=== PATIENT | female | born 1940 | race Caucasian/White ===

== ENCOUNTER 2020-09-29 19:45 | Inpatient (IN) | payer MEDICARE, MEDICAID, SELFPAY ==
[~2020-09-29] VITALS: Ht 160 cm; Wt 64.9 kg
[2020-09-29 19:48] VITALS: BP 233/121
--- NOTE | 2020-09-29 19:48 | NUR ---
PT TAKEN TO BED 8 VIA GURNEY.
--- NOTE | 2020-09-29 19:49 | NUR ---
RT AT BEDSIDE.
--- NOTE | 2020-09-29 19:50 | NUR ---
SUCTIONED OF COPIUS AMOUNTS THICK WHITE SPUTUM
--- NOTE | 2020-09-29 19:53 | NUR ---
PATIENT WAS BROUGHT TO ED BY EMT. PT IS BEING BAGGED ON ARRIVAL. PT WAS CONNECTED TO HOME VENT SETTINGS: AC/VC RR 16, VT 400, PEEP 6. PT WAS PEAK PRESSURING IN 60s WITH LESS THAN 150 EXHALE VOLUMES. SUCTIONED COPIOUS AMOUNT OF CREAMY/ YELLOW THICK SECRETIONS FROM ETT. STILL HIGH PEAK PRESSURES AND LOW VOLUMES. SWITCHED MODE TO PRESSURE CONTROL AND TITRATED INSPIRATORY PRESSURE TO 24 TO GET VOLUMES GREATER THAN 300, RR 16, PEEP 6, FiO2 100. VENT PLUGGED IN RED OUTLET, ALARMS SET AND AUDIBLE. WILL CONTINUE TO MONITOR PT.
--- NOTE | 2020-09-29 19:55 | NUR ---
PATIENT PRESENTS TO ED WITH C/O SOB . PT ATTACHED TO VENT VIA TRACH. SKIN IS PINK/WARM/MOIST; HR EVEN AND REGULAR; PATIENT POSITIONED FOR COMFORT; HOB ELEVATED; BEDRAILS UP X2; BED DOWN. ER MD MADE AWARE OF PT STATUS.
[2020-09-29] MEDS ORDERED: ALBUTEROL SULFATE/IPRATROPIU 3 ML SOL IH ONE (20:10)
--- NOTE | 2020-09-29 20:14 | NUR ---
EKG PERFORMED AT BEDSIDE. EKG READS SINUS TACHYCARDIA @ 112
[2020-09-29 20:40] LABS: BASOPHILS % (AUTO) 0.2 % (0.0-2.0); EOSINOPHILS # (AUTO) 0.1 K/uL (0-0.4); EOSINOPHILS % (AUTO) 0.4 % (0.0-4.0); HEMATOCRIT 34.7 % (36-48); HEMOGLOBIN 11.6 g/dL (12.0-16.0); LYMPHOCYTES # (AUTO) 3.9 K/uL (2.5-16.5); LYMPHOCYTES % (AUTO) 20.8 % (20.5-51.1); MEAN CORPUSCULAR HEMOGLOBIN 33 pg (27-31); MEAN CORPUSCULAR HGB CONC 33 g/dL (33-37); MEAN CORPUSCULAR VOLUME 99.7 fL (80-94); MONOCYTES % (AUTO) 5.1 % (1.7-9.3); NEUTROPHILS # (AUTO) 13.9 K/uL (1.8-7.7); NEUTROPHILS % (AUTO) 73.5 % (42.2-75.2); PLATELET COUNT (AUTO) 507 K/uL (140-450); RED BLOOD CELL COUNT(AUTO) 3.48 MIL/uL (4.20-5.40); RED CELL DISTRIBUTION WIDTH 13.5 % (11.6-13.7); WHITE BLOOD COUNT (AUTO) 18.9 K/uL (4.8-10.8)
[2020-09-29 20:48] LABS: C-REACTIVE PROTEIN QUANT 3.4 mg/dL (0.0-0.9)
[2020-09-29 20:54] LABS: LACTATE DEHYDROGENASE 194 U/L (81-234); PROTHROMBIN TIME 10.9 secs (10.8-13.4)
[2020-09-29 21:02] LABS: ALBUMIN 2.7 g/dL (3.4-5.0); ANION GAP 9.5 (8-16); ASPARTATE AMINOTRANSFERASE 19 U/L (15-37); CARBON DIOXIDE 29.3 mmol/L (21-32); CHLORIDE 91 mmol/L (98-107); CREATININE 0.6 mg/dL (0.6-1.3); POTASSIUM 4.8 mmol/L (3.5-5.1); SODIUM SERUM 125 mmol/L (136-145); TOTAL BILIRUBIN 0.2 mg/dL (0.0-1.0); UREA NITROGEN, BLOOD 18 mg/dL (7-18)
[2020-09-29 21:05] LABS: GLUCOSE 415 mg/dL (74-106)
--- NOTE | 2020-09-29 21:15 | NUR ---
ABG RESULTS WERE REPORTED TO DR. NOLEN. CHANGES MADE ON VENT SETTINGS. INCREASED RR FROM 16 TO 24. PT TOLERATING WELL. WILL CONTINUE TO MONITOR.
[2020-09-29] MEDS ORDERED: NACL 0.9% 1,000 ML IV ONE (21:25)
--- NOTE | 2020-09-29 21:25 | NUR ---
XARY AT BEDSIDE.
--- NOTE | 2020-09-29 22:00 | NUR ---
O2 SAT 82-84%. SUCTIONED OF LARGE AMOUNTS TENACIOUS SPUTUM O2 SAT INCREASED TO 94%
[2020-09-29] MEDS ORDERED: PIPERACILLIN/TAZOBACTAM 3.375 GM in DEXTROSE 5% 50 ML IV ONE (22:05)
[2020-09-29] MEDS ORDERED: VANCOMYCIN 1,000 MG in DEXTROSE 5% 250 ML IV ONE (22:05)
[2020-09-29] MEDS ORDERED: NICARDIPINE HYDROCHLORIDE 25 MG in NACL 0.9% 240 ML IV ONE (22:45)
--- NOTE | 2020-09-29 22:50 | NUR ---
ABG RESULTS WERE REPORTED TO DR. NOLEN. NO CHANGES MADE ON VENT SETTINGS. WILL CONTINUE TO MONITOR.
[2020-09-29 23:10] VITALS: BP 196/108
--- NOTE | 2020-09-29 23:39 | NUR ---
X-RAY AT BEDSIDE
[2020-09-29] MEDS ORDERED: VANCOMYCIN 1,000 MG VIAL ONE (23:48)
[2020-09-30 00:02] LABS: RSV NEGATIVE (NEGATIVE)
[2020-09-30] MEDS ORDERED: HYDR-3233 PO (01:15)
[2020-09-30] MEDS ORDERED: LEVO0.114 PO (01:15)
[2020-09-30] MEDS ORDERED: MELA5TAB6 PO (01:15)
[2020-09-30] MEDS ORDERED: MONT10TA35 PO (01:15)
[2020-09-30] MEDS ORDERED: SENN-74 PO (01:15)
[2020-09-30] MEDS ORDERED: WITC1MED22 TP (01:15)
[2020-09-30] MEDS ORDERED: DOCU-299 PO (01:15)
[2020-09-30] MEDS ORDERED: GABA-636 PO (01:15)
[2020-09-30] MEDS ORDERED: ASPI-1884 PO (01:15)
[2020-09-30] MEDS ORDERED: METOPROLOL 25 MG TAB PO SCH (01:26)
[2020-09-30] MEDS ORDERED: METOPROLOL 5 MG/5 ML VIAL IV SCH (01:26)
[2020-09-30] MEDS ORDERED: NACL 0.9% 500 ML IV SCH (01:30)
[2020-09-30] MEDS ORDERED: PIPERACILLIN/TAZOBACTAM 3.375 GM VIAL IV ONE (01:36)
[2020-09-30] MEDS ORDERED: METOPROLOL 5 MG/5 ML VIAL ONE (01:53)
[2020-09-30] MEDS ORDERED: METOPROLOL 25 MG TAB ONE (01:53)
[2020-09-30] MEDS ORDERED: METOPROLOL 25 MG TAB PEG STA (01:58)
[2020-09-30] MEDS ORDERED: METOPROLOL 5 MG/5 ML VIAL IV STA (01:58)
--- NOTE | 2020-09-30 02:00 | NUR ---
RESTING IN BED APPEARS MORE ALERT. BP HAS IMPROVED. CM REMAINS ST WITHOUT ECTOPY. SUCTIONED MODERATE AMOUNT THICK SPUTUM. LUNGS REMAINS NOISY WITH COARSE CRACKLES THROUGHOUT.
--- NOTE | 2020-09-30 02:30 | NUR ---
REPORT CALLED TO SELENA ELLER
[2020-09-30 03:42] VITALS: BP 157/85
--- NOTE | 2020-09-30 04:05 | NUR ---
Pt transferred to Tele via GURNEY ATTACHED TO VENT AND ACCOUNTING SUPERVISOR. RT AT BEDSIDE
--- NOTE | 2020-09-30 04:30 | NUR ---
PT WAS SUCCESSFULLY TRANSPORTED FROM ER TO THE FLOOR. VENT WAS PLUGGED IN RED OUTLET. ALARMS SET AND AUDIBLE. PT IS IN NO RESPIRATORY DISTRESS AT THIS TIME. TRACH CARE COMPLETED. AIRWAY IS PATENT. RN AT BEDSIDE. WILL CONTINUE TO MONITOR PT.
--- NOTE | 2020-09-30 04:31 | NUR ---
[place]MITTED 80 F[place] [facility] [place]SFERRED SAFELY FR. SNOW TO BED, ON TRACH TO VENT, NO DISTRESS, RT AT BEDSIDE, PT IS NON VERBAL, OPENS EYES UPON SHAKING. NO SOB, FLACC 0. V/S TAKEN, O2 SAT AT 99% ON VENT. MRSA SWAB TAKEN, CLEANED PT, KELSIE CARE RENDERED, KEPT WARM AND COMFORTABLE, FALL PROTOCOL IN PLACE, DROPLET ISO OBSERVED, CALL LIGHT WITHIN REACH. WILL MONITOR.
--- NOTE | 2020-09-30 06:06 | NUR ---
DR. NOLEN CHECKED THE PT AND DID MANUAL REDUCTION TO PT'S LEFT SHOULDER AND PUT A SLING.
--- NOTE | 2020-09-30 06:30 | NUR ---
SPOKE TO MARY RN, SHE SAID TO F/U LATER ABOUT THE PT VACCINATION STATUS. SHE ALSO SAID THAT FAMILY CONSENTED TO GIVE VACCINE BUT SHE CANNOT FIND RECORD IF IT WAS GIVEN ALREADY OR NOT YET.
[2020-09-30] MEDS: DEXT 5% / NACL 0.9% 500 ML IV SCH ×2 (07:30→15:12)
--- NOTE | 2020-09-30 07:30 | NUR ---
RECEIVED REPORT FROM NIGHT NURSE FOR CONTINUITY OF CARE, PT IS STABLE, TRACH TO VENT, PT'S MACHINE ALARMING PER NIGHT NURSE SHE CALLED RT. PT HAS RIGHT HAND 20G SALINE LOCK, PT HAS LEFT SHOULDER SLING, SAFETY MEASURES IN PLACE, WILL CONTINUE TO MONITOR. PT'S DAUGHTER CALLED AND UPDATED HER ON CURRENT PLAN AND WILL CALL HER BACK WITH MORE INFORMATION, ONCE DR HAS ASSESS PT. RONEL [phone]
--- NOTE | 2020-09-30 07:32 | NUR ---
INFORMED DR. AZUL THAT PT HAS NO DIET. NO GT. NO IVF. ORDERED D5NS AT 65 CC/HR, NPO AND FULL CODE. NOTED AND CARRIED OUT.
--- NOTE | 2020-09-30 07:33 | NUR ---
PT IS STABLE, ENDORSED PT TO AM SHIFT RN FOR CONTINUITY OF CARE. Addendum: 09/30/20 at 0759 by Alison Landa RN ALSO ENDORSED TO F/U IN CEC THE VACCINATION STATUS OF PATIENT.
[2020-09-30 08:00] VITALS: BP 132/80
--- NOTE | 2020-09-30 08:30 | NUR ---
PATIENT HAS BEEN SCREENED AND CATEGORIZED HIGH NUTRITION RISK. PATIENT WILL BE SEEN WITHIN 1-2 DAYS OF ADMISSION. 09/30/2020 - 10/01/2020 ALICIA HUBER MBA, RD
[2020-09-30] MEDS ORDERED: guaiFENesin DM 200/20 MG-10 ML 10 ML UDC PO PRN (08:50)
[2020-09-30] MEDS ORDERED: hydrALAZINE 10 MG TAB PO SCH (08:50)
[2020-09-30] MEDS ORDERED: ONDANSETRON 4 MG/2 ML VIAL IM/IVP PRN (08:50)
[2020-09-30] MEDS: PIPERACILLIN/TAZOBACTAM 3.375 GM in DEXTROSE 5% 50 ML IV SCH ×6 (08:50→23:03)
[2020-09-30] MEDS ORDERED: ACETAMINOPHEN 325 MG TAB PO PRN (08:50)
[2020-09-30] MEDS ORDERED: HYDROcodone/APAP 7.5/325 MG 1 TAB PO PRN (08:50)
[2020-09-30] MEDS ORDERED: ZOLPIDEM 5 MG TAB PO PRN (08:50)
[2020-09-30] MEDS ORDERED: DOCUSATE SODIUM 100 MG GELCAP PO PRN (08:50)
[2020-09-30] MEDS: LEVOTHYROXINE 0.112 MG TAB PO SCH (09:00)
[2020-09-30] MEDS: ASPIRIN 81 MG TAB.CHEW PO SCH (09:00)
[2020-09-30] MEDS: GABAPENTIN 100 MG CAP PO SCH ×2 (09:00→20:51)
[2020-09-30] MEDS: PANTOPRAZOLE 40 MG INJ VIAL IVP SCH (10:05)
--- NOTE | 2020-09-30 10:53 | NUR ---
NOTIFIED DR AZUL PT DOES NOT HAVE IV ACCESS, PT MAY NEED PICC LINE, UNABLE TO GIVE IV MEDICATION.
--- NOTE | 2020-09-30 10:55 | NUR ---
RECEIVED TORB FOR PICC LINE ORDER FOR PT, OBTAIN PICC LINE CONSENT. WILL INPUT ORDER AND CARRY IT OUT.
--- NOTE | 2020-09-30 11:04 | NUR ---
OBTAINED CONSENT FOR [facility] TO HAVE [facility], WILL CALL PICC LINE NURSE.
--- NOTE | 2020-09-30 11:13 | NUR ---
UPDATED PT'S DAUGHTER RONEL REGARDING PT'S STATUS, SHE VERBALIZED UNDERSTANDING AND APPRECIATION.
[2020-09-30] MEDS ORDERED: DEXTROSE 50% 50 ML SYR IVP PRN (11:25)
[2020-09-30] MEDS: BLOOD GLUCOSE MONITORING 1 DEV DEV FS SCH ×3 (11:30→21:38)
[2020-09-30 12:00] VITALS: BP 146/98
[2020-09-30 12:03] LABS: CHOL/HDL RATIO 2.9 (1-4.5); FREE T4 (FREE THYROXINE) 1.58 ng/dL (0.76-1.46); MAGNESIUM 1.8 mg/dL (1.8-2.4); PHOSPHORUS 3.3 mg/dL (2.5-4.9); THYROID STIMULATING HORMONE 1.01 uIU/mL (0.34-3.74)
--- NOTE | 2020-09-30 14:39 | NUR ---
CALLED DR AZUL AND INFORMED HIM PER PICC LINE NURSE, BOTH OF PT'S ARM ARE PARALYSIS AND DOES DR AZUL WANTS THE PT TO GO AHEAD AND GET THE MIDLINE. NOTIFIED DR AZUL AND DR AZUL SAID "GO AHEAD AND PUT A MIDLINE". WILL NOTIFIED PICC LINE NURSE.
--- NOTE | 2020-09-30 15:01 | NUR ---
PT HAS RIGHT UA MIDLINE, PER PICC LINE NURSE, IT IS OKAY TO USE MIDLINE. WILL START ZOSYN AND SKIP 1800 ZOSYN PER PHARMACIST. ADMINISTERED SCHEDULED MEDICATION, MEDICATION EDUCATION PROVIDED, PT IS LITHUANIAN SPEAKING AND TRACHED TO VENT, PT IS STABLE, WILL CONTINUE TO MONITOR.
[2020-09-30 15:19] LABS: APPEARANCE,URINE CLEAR (CLEAR); BILIRUBIN,URINE NEGATIVE (NEGATIVE); BLOOD, URINE 2+ (NEGATIVE); COLOR,URINE YELLOW (YELLOW); LEUKOCYTE ESTERASE ,URINE NEGATIVE (NEGATIVE); NITRITE, URINE POSITIVE (NEGATIVE); UGLUCOSE 3+ (NEGATIVE)
[2020-09-30 15:30] VITALS: BP 65/39
[2020-09-30 15:41] LABS: RBC,URINE 11-20 (MOD) /HPF (0-5); WBC,URINE 0-5 /HPF (0-5)
[2020-09-30 15:42] LABS: TRICHOMONAS,URINE None Seen /HPF (None Seen); YEAST,URINE None Seen /HPF (None Seen)
--- NOTE | 2020-09-30 15:46 | NUR ---
PER PHARMACY DR AZUL NEEDS TO ADD FREQUENCY TO HYDRALAZINE PRN ORDER, PER DR AZUL GIVE HYDRALAZINE BID. WILL NOTIFY PHARMACY.
[2020-09-30 16:00] VITALS: BP 91/62
--- NOTE | 2020-09-30 16:38 | NUR ---
CALLED PT DAUGHTER RONEL AT [phone] AND UNABLE TO LEAVE A VOICEMAIL, LEFT A MSM PAGE WITH CALL BACK NUMBER [phone] NOTIFIED RT FOR VALVE FOR PT TO BE ABLE TO SPEAK.
--- NOTE | 2020-09-30 18:30 | NUR ---
NOTIFIED DR AZUL BP IS LOW, RECEIVED TORB FROM DR AZUL TO INCREASE D5NS TO 80ML/H AND PT CAN START DIET ON MECHANICAL SOFT, START SLOW AND MONITOR FOR CHOKING.
--- NOTE | 2020-09-30 19:30 | NUR ---
ENDORSE PT TO NIGHT NURSE FOR CONTINUITY OF CARE, PT IS STABLE.
--- NOTE | 2020-09-30 19:45 | NUR ---
RECEIVED ENDORSEMENT FROM DAY SHIFT RN, PT IS STABLE, TRACH TO VENT ACPC FIO2 40% RATE 24 PEEP 6, PT ON A PUREED DIET. SR/ST ON MONITOR, PT HAS GERRY MIDLINE RUNNING D5 NS 80 MLS/HR, PT HAS LEFT SHOULDER SLING, SHOWING NO SIGNS OF ACUTE DISTRESS, SAFETY MEASURES IN PLACE, WILL CONTINUE TO MONITOR.
--- NOTE | 2020-09-30 19:56 | NUR ---
RECEIVED PT FROM DAY SHIFT ON SETTING PC 24, R 24, PEEP 6, FIO2 40%. PT TRACH WITH PORTEX 7. VENTILATOR PLUGGED TO THE RED OUTLET, BVM @ BEDSIDE, ALARMS ARE SET AUDIBLE. PT IS IN NO RESPIRATORY DISTRESS. WILL CONTINUE TO MONITOR.
[2020-09-30 20:00] VITALS: BP 108/55
[2020-09-30] MEDS: MONTELUKAST SODIUM 10 MG TAB PO SCH (20:52)
[2020-09-30] MEDS: INSULIN LISPRO SLIDING SCALE 100 UNITS/ML VIAL SUBQ PRN (21:20)
--- NOTE | 2020-09-30 21:45 | NUR ---
ADMINISTERED 2100H MEDICATIONS PER ORDERED, ORAL CARE AND SUCTIONING PERFORMED. PT SHOWING NO SIGNS OF ACUTE DISTRESS, SAFETY MEASURES IN PLACE, WILL CONTINUE TO MONITOR
--- NOTE | 2020-09-30 22:10 | NUR ---
PT'S DAUGHTER RONEL CALLED VIA [phone] AND UPDATED HER ON THE PTS CONDITION
[2020-10-01] VITALS: BP 112/56
--- NOTE | 2020-10-01 00:05 | NUR ---
ORAL CARE AND SUCTIONING PERFORMED, PT SHOWING NO SIGNS OF ACUTE DISTRESS, SAFETY MEASURES IN PLACE, WILL CONTINUE TO MONITOR
--- NOTE | 2020-10-01 00:25 | NUR ---
PT'S DAUGHTER RONEL CALLED VIA [phone] AND UPDATED HER ON THE PTS CONDITION
--- NOTE | 2020-10-01 01:15 | NUR ---
REPOSITIONED PT, ORAL CARE AND SUCTIONING PERFORMED, PT SHOWING NO SIGNS OF ACUTE DISTRESS, SAFETY MEASURES IN PLACE
[2020-10-01 04:00] VITALS: BP 106/61
[2020-10-01] MEDS: PIPERACILLIN/TAZOBACTAM 3.375 GM in DEXTROSE 5% 50 ML IV SCH ×3 (05:09→17:05)
--- NOTE | 2020-10-01 05:30 | NUR ---
[place] NEW BAG OF ZOSYN 3.375 GM
[2020-10-01] MEDS: DEXT 5% / NACL 0.9% 500 ML IV SCH ×5 (06:03→23:46)
[2020-10-01 06:13] LABS: BASOPHILS % (AUTO) 0.2 % (0.0-2.0); HEMATOCRIT 26.6 % (36-48); HEMOGLOBIN 9.2 g/dL (12.0-16.0); LYMPHOCYTES # (AUTO) 1.3 K/uL (2.5-16.5); LYMPHOCYTES % (AUTO) 11.6 % (20.5-51.1); MEAN CORPUSCULAR HEMOGLOBIN 33 pg (27-31); MEAN CORPUSCULAR HGB CONC 35 g/dL (33-37); MEAN CORPUSCULAR VOLUME 96.7 fL (80-94); MONOCYTES # (AUTO) 0.6 K/uL (0.8-1.0); MONOCYTES % (AUTO) 5.5 % (1.7-9.3); NEUTROPHILS # (AUTO) 9.5 K/uL (1.8-7.7); NEUTROPHILS % (AUTO) 82.7 % (42.2-75.2); PLATELET COUNT (AUTO) 326 K/uL (140-450); RED BLOOD CELL COUNT(AUTO) 2.75 MIL/uL (4.20-5.40); RED CELL DISTRIBUTION WIDTH 13.8 % (11.6-13.7); WHITE BLOOD COUNT (AUTO) 11.5 K/uL (4.8-10.8)
[2020-10-01] MEDS: INSULIN LISPRO SLIDING SCALE 100 UNITS/ML VIAL SUBQ PRN ×3 (06:36→17:10)
[2020-10-01] MEDS: BLOOD GLUCOSE MONITORING 1 DEV DEV FS SCH ×4 (06:36→20:23)
--- NOTE | 2020-10-01 06:38 | NUR ---
REPOSITIONED PT, ORAL CARE AND SUCTIONING PERFORMED, AM CARE GIVEN, PT BLOOD GLUCOSE 198, ADMINISTERED 2 UNITS OF HUMALOG PER PROTOCOL, PT SHOWING NO SIGNS OF ACUTE DISTRESS, SAFETY MEASURES IN PLACE
[2020-10-01 06:58] LABS: ANION GAP 12.3 (8-16); CARBON DIOXIDE 25.9 mmol/L (21-32); CHLORIDE 97 mmol/L (98-107); CREATININE 0.8 mg/dL (0.6-1.3); GLUCOSE 206 mg/dL (74-106); POTASSIUM 3.2 mmol/L (3.5-5.1); SODIUM SERUM 132 mmol/L (136-145); UREA NITROGEN, BLOOD 19 mg/dL (7-18)
--- NOTE | 2020-10-01 07:30 | NUR ---
RECEIVED ENDORSEMENT FROM BOTTLE PACKER RN, PT IS STABLE, TRACH TO VENT ACPC FIO2 40% RATE 24 PEEP 6, PT ON ST ON MONITOR, PT HAS GERRY MIDLINE RUNNING D5 NS 80 MLS/HR, PT HAS LEFT SHOULDER SLING, SHOWING NO SIGNS OF ACUTE DISTRESS, SAFETY MEASURES IN PLACE, WILL CONTINUE TO MONITOR.
--- NOTE | 2020-10-01 07:37 | NUR ---
ENDORSED TO DAY SHIFT RN FOR CONTINUITY OF CARE, PT IN STABLE CONDITION
[2020-10-01 08:00] VITALS: BP 124/64
--- NOTE | 2020-10-01 08:30 | NUR ---
Marquita DAUGHTER CALLED AND UPDATED ABOUT PTS CONDITION.DAUGHTER WANTED TO TALKED TO DR AZUL.RN NOTIFIED DR AZUL AND WILL CALL MD AT 0915.
[2020-10-01] MEDS: GABAPENTIN 100 MG CAP PO SCH ×2 (09:49→20:23)
[2020-10-01] MEDS: LEVOTHYROXINE 0.112 MG TAB PO SCH (09:49)
[2020-10-01] MEDS: PANTOPRAZOLE 40 MG INJ VIAL IVP SCH (09:49)
[2020-10-01] MEDS: ASPIRIN 81 MG TAB.CHEW PO SCH (09:49)
--- NOTE | 2020-10-01 10:07 | NUR ---
DC PLANN[age] YRS OLD FEMALE PATIENT [place] [facility] [place] DX OF ASPIRATION PNEUMONIA ,SEPSIS, ELEVATED TROPONIN AND R/O COVID. PATIENT HAS A HX OF TRACH-VENT HYPOTHYROID DM, INSOMNIA AND GLAUCOMA. CXR SHOWED RT LOWER AND RT MIDDLE LOBE INFILTRATES, LIKELY ASPIRATION PNEUMONIA . XRAY OF LEFT SHOULDER SHOWED LEFT ANTERIOR SHOULDER DISLOCATION. CLOSED REDUCTION DONE AT ER. RAPID COVID TEST NEGATIVE PCR IS PENDING. BLOOD AND URINE CULTURE PENDING. ADMINISTERED IVF , IV ABX ZOSYN AND CONTINUE HOME MEDS. CONSULTED WITH ERIC MCKEON PLAN TO TRANSFER TO [facility] THE CONTRACTED FACILITY. CALLED [facility] SPOKE WITH KYLIE UPDATED ALL THE CLINICALS FAXED ALL CLINICALS AND STABLE FOR TRANSFER. PER KYLIE WILL NOTIFY [facility] AND WILL CALL BACK .CM TO FOLLOW Addendum: 10/01/20 at 1351 by Vi Saul RN DC PLANNING: RECEIVED A MESSAGE FROM [facility] AT [facility] STATED PATIENT IS ON PRESSURE CONTROL AND CAN NOT TRANSFER AND ALLOWING PT TO STAY AND WILL FOLLOW UP TOMORROW. CM TO FOLLOW Addendum: 10/04/20 at 1325 by Leslie Salamanca CM DC PAPER BOX CUTTER: PAT[place] [facility] [address] AZUL. CONTACTED RASHID AND SPOKE TO YUMIKO [phone]. TRANSPORTATION IS SET UP FOR 5:45 PM. Addendum: 10/04/20 at 1328 by Leslie Salamanca CM DC PAPER BOX CUTTER: NOTIFIED SELENA SUÁREZ OF TRANSPORTATION [facility] [address] [place] [address] RO[address] DR. AZUL 5:45 PM SCADA OPERATOR WITH RASHID [phone]
[2020-10-01] MEDS: POTASSIUM CHLORIDE 40 MEQ, LIDOCAINE MPF 1% 25 MG in NACL 0.9% 250 ML IV PRN (10:18)
[2020-10-01] MEDS ORDERED: BRIM5SOL2 OP (11:09)
[2020-10-01 12:00] VITALS: BP 132/71
--- NOTE | 2020-10-01 12:04 | NUR ---
10/01/20 RD INITIAL ASSESSMENT COMPLETED PLEASE REFER TO NUTRITION ASSESSMENT UNDER CARE ACTIVITY FOR ESTIMATED NUTRITIONAL NEEDS. 1. CONTINUE PUREED DIET TOLERATED 2. IF PO INTAKE IS <75% CONSIDER GLUCERNA TID 3. CONSIDER ASSESSMENT BY SPEECH THERAPIST FOR APPROPRIATE TEXTURE 4. RD TO FOLLOW-UP 2-3 DAYS, HIGH RISK [facility] GRANT, S[place]
--- NOTE | 2020-10-01 15:00 | NUR ---
DAUGHTER UPDATED ABOUT PTS CONDITION AND DAUGHTER STATED TALED TO DR alaniz.
[2020-10-01 16:00] VITALS: BP 142/92
--- NOTE | 2020-10-01 19:06 | NUR ---
PT IS NOT IN ANY CARDIORESPIRATORY DISTRESS.pT TOLERATING TRACHE TO VENT.
--- NOTE | 2020-10-01 19:25 | NUR ---
RECEIVED REPORT AND CONTINUITY OF CARE FROM AM NURSE.
--- NOTE | 2020-10-01 19:35 | NUR ---
REPORT GIVEN TO JOSE F DIAZ FOR CONTINUITY OF CARE
--- NOTE | 2020-10-01 19:40 | NUR ---
RECEIVED CONTINUITY OF CARE FROM AM RN. PT IS A/OX1, EQUAL BILATERAL EYEBROWS, SYMMETRICAL SMILE.TRACH TO VENT WITH THESE FI02 30%, PC 24, PEEP 6, RR 24. LUNGS TONES ARE COARSE AND RHONCHI THROUGHOUT. CHEST IS SYMMETRICAL. ABD IS SOFT AND NON-TENDER. SKIN IS WARM, DRY, INTACT, GERRY MIDLINE NOTED. SLING TO LEFT ARM DUE TO DISLOCATED SHOULDER. PT IS IN STABLE CONDITION. CALL LIGHT WITHIN REACH. SAFETY PRECAUTIONS IN PLACE. WILL CONTINUE TO MONITOR.
[2020-10-01 20:00] VITALS: BP 141/94
[2020-10-01] MEDS ORDERED: CRUSHER, PILL MC ONE (20:09)
[2020-10-01] MEDS: BRIMONIDINE TARTRATE 0.2% OP 5 ML BTL OP SCH (20:22)
[2020-10-01] MEDS: TIMOLOL OP 0.5% 5 ML BTL OP SCH (20:22)
[2020-10-01] MEDS: MONTELUKAST SODIUM 10 MG TAB PO SCH (20:23)
--- NOTE | 2020-10-01 20:24 | NUR ---
PT REFUSED PO MEDS, DINNER, AND BLOOD SUGAR REFUSE BY SHAKING HER HEAD AND NOT OPENING HER MOUTH TO TAKE MEDICATION OR DINNER. EDUCATION WAS RENDERED. Addendum: 10/02/20 at 0050 by Clemente Mcduffie RN CORRECTION, PT REFUSED BLOOD SUGAR CHECK
[2020-10-02] VITALS: BP 170/90
--- NOTE | 2020-10-02 00:25 | NUR ---
PT REQUESTED FOR BLOOD SUGAR CHECK. FSBS IS 188, ADMINISTERED INSULIN PER PROTOCOL.
[2020-10-02] MEDS: PIPERACILLIN/TAZOBACTAM 3.375 GM in DEXTROSE 5% 50 ML IV SCH ×4 (00:50→17:19)
[2020-10-02] MEDS: INSULIN LISPRO SLIDING SCALE 100 UNITS/ML VIAL SUBQ PRN ×4 (00:52→21:41)
--- NOTE | 2020-10-02 01:10 | NUR ---
PT IS SLEEPING. NO SIGNS OF DISTRESS.
--- NOTE | 2020-10-02 01:25 | NUR ---
PECAN SHELLER REPORTED THAT PT HAS ELEVATED BLOOD PRESSURE OF 170/90. ATTEMPTED TO ADMINISTER PO BLOOD PRESSURE MEDICATION BUT PT REFUSED BY SHAKING HER HEAD AND NOT OPENING HER MOUTH. CONTACTED FOR ORDERS AND AWAITING RESPONSE.
--- NOTE | 2020-10-02 02:11 | NUR ---
NO RESPONSE FROM DR ABOUT THE PT'S ELEVATED BP. CONTACTED THE DR A SECOND TIME AND DR DID NOT MANUFACTURING QUALITY TECHNICIAN.
--- NOTE | 2020-10-02 02:30 | NUR ---
REASSESSED PT'S BP IS RECEIVED 140/90.
--- NOTE | 2020-10-02 03:23 | NUR ---
PT'S DAUGHTER RONEL CALLED FOR UPDATE.
[2020-10-02 04:00] VITALS: BP 167/80
[2020-10-02] MEDS: DEXT 5% / NACL 0.9% 500 ML IV SCH ×3 (05:24→17:19)
--- NOTE | 2020-10-02 05:30 | NUR ---
ADMINISTERED SCHEDULED MEDS. EDUCATION RENDERED.
[2020-10-02 06:07] LABS: T4 (THYROXINE) 7.4 ug/dL (4.5-12.0)
[2020-10-02 06:57] LABS: BASOPHILS % (AUTO) 0.2 % (0.0-2.0); EOSINOPHILS # (AUTO) 0.2 K/uL (0-0.4); EOSINOPHILS % (AUTO) 1.2 % (0.0-4.0); HEMATOCRIT 29.5 % (36-48); HEMOGLOBIN 10.2 g/dL (12.0-16.0); LYMPHOCYTES # (AUTO) 1.2 K/uL (2.5-16.5); LYMPHOCYTES % (AUTO) 8.2 % (20.5-51.1); MEAN CORPUSCULAR HEMOGLOBIN 34 pg (27-31); MEAN CORPUSCULAR HGB CONC 34 g/dL (33-37); MEAN CORPUSCULAR VOLUME 97.7 fL (80-94); MONOCYTES # (AUTO) 0.9 K/uL (0.8-1.0); MONOCYTES % (AUTO) 5.7 % (1.7-9.3); NEUTROPHILS # (AUTO) 12.7 K/uL (1.8-7.7); NEUTROPHILS % (AUTO) 84.7 % (42.2-75.2); PLATELET COUNT (AUTO) 286 K/uL (140-450); RED BLOOD CELL COUNT(AUTO) 3.02 MIL/uL (4.20-5.40); RED CELL DISTRIBUTION WIDTH 13.9 % (11.6-13.7); WHITE BLOOD COUNT (AUTO) 15.1 K/uL (4.8-10.8)
--- NOTE | 2020-10-02 07:06 | NUR ---
FSBS RECEIVED TO BE 178. PT REFUSED INSULIN BY SHAKING HER HEAD.
[2020-10-02 07:10] LABS: ANION GAP 13.6 (8-16); CARBON DIOXIDE 23.2 mmol/L (21-32); CHLORIDE 99 mmol/L (98-107); CREATININE 0.6 mg/dL (0.6-1.3); GLUCOSE 193 mg/dL (74-106); SODIUM SERUM 133 mmol/L (136-145); UREA NITROGEN, BLOOD 10 mg/dL (7-18)
[2020-10-02] MEDS: BLOOD GLUCOSE MONITORING 1 DEV DEV FS SCH ×4 (07:12→21:33)
[2020-10-02 07:14] LABS: POTASSIUM 2.8 mmol/L (3.5-5.1)
--- NOTE | 2020-10-02 07:54 | NUR ---
ENDORSED CARE TO AM NURSE. PT IS IN STABLE CONDITION.
--- NOTE | 2020-10-02 07:55 | NUR ---
REPORT RECEIVED FROM SECONDARY ART TEACHER RN AT BEDSIDE FOR CONTINUITY OF CARE. PATIENT RESTING IN BED, COMFORTABLY, TRACH TO VENT. NO S/S OF DISTRESS AT THIS TIME. WILL CONTINUE TO MONITOR.
[2020-10-02 08:00] VITALS: BP 134/73
[2020-10-02] MEDS ORDERED: NON-FORMULARY ITEM (Brimonidine Tartrate/Timolol (Combigan 0.2%-0.5% Eye Drops) 5 ML) OP SCH (09:00)
[2020-10-02] MEDS: GABAPENTIN 100 MG CAP PO SCH ×3 (09:00→21:34)
[2020-10-02] MEDS: PANTOPRAZOLE 40 MG INJ VIAL IVP SCH (09:47)
[2020-10-02] MEDS: LEVOTHYROXINE 0.112 MG TAB PO SCH (09:47)
[2020-10-02] MEDS: ASPIRIN 81 MG TAB.CHEW PO SCH (09:48)
[2020-10-02] MEDS: TIMOLOL OP 0.5% 5 ML BTL OP SCH ×2 (09:48→21:03)
[2020-10-02] MEDS: BRIMONIDINE TARTRATE 0.2% OP 5 ML BTL OP SCH ×2 (09:48→21:02)
--- NOTE | 2020-10-02 09:48 | NUR ---
PATIENT'S SCHEDULED MEDICATIONS GIVEN. PATIENT REFUSED GABAPENTIN. PATIENT'S MEDICATIONS CRUSHED AND GIVEN WITH APPLESAUCE. ORAL CARE PERFORMED. PATIENT TOLERATED IT. NO S/S OF DISTRESS AT THIS TIME. WILL CONTINUE TO MONITOR PATIENT.
[2020-10-02] MEDS: POTASSIUM CHLORIDE 40 MEQ, LIDOCAINE MPF 1% 25 MG in NACL 0.9% 250 ML IV PRN (10:17)
--- NOTE | 2020-10-02 10:17 | NUR ---
PATIENT'S K LEVEL 2.8. PRN DIPESH WITH LIDOCAINE GIVEN. PATIENT TOLERATING IT. NO COMPLAINTS AT THIS TIME. WILL CONTINUE TO MONITOR PATIENT.
--- NOTE | 2020-10-02 11:20 | NUR ---
PATIENT VOIDED. PATIENT CLEANED UP, GIVEN SPONGE BATH BY PERSONAL DRIVER AND REPOSITIONED FOR COMFORT AND TO OFFLOAD PRESSURED AREAS. PATIENT REQUESTED FOR WATER MIXED WITH MILK. MILK AND WATER MIXED GIVEN TO PATIENT REQUESTED TO SIP. PATIENT DID NOT WANT STRAW. WILL CONTINUE TO MONITOR PATIENT.
[2020-10-02 12:00] VITALS: BP 132/90
--- NOTE | 2020-10-02 15:55 | NUR ---
PATIENT'S DAUGHTER CALLED. UPDATED HER ON PATIENT'S STATUS AND CONDITION. INFORMED HER ABOUT PATIENT'S APPETITE. PER DAUGHTER, PATIENT' LIKES ENSURE. INFORMED DR. MOODY OF DAUGHTER'S REQUEST TO HAVE ENSURE TID FOR PATIENT'S MEAL. NEW ORDER IN FOR GLUCERNA TID. WILL CONTINUE TO MONITOR PATIENT.
[2020-10-02 16:00] VITALS: BP 125/90
--- NOTE | 2020-10-02 19:38 | NUR ---
REPORT GIVEN TO BOX SPRING FRAME BUILDER NURSE. PATIENT RESTING IN BED COMFORTABLY. PCR COVID TEST NEGATIVE.
--- NOTE | 2020-10-02 19:45 | NUR ---
RECEIVED REPORT FROM DAYSCOFT NURSE. PT TRACH TO VENT, AC PC FI02 24%, RATE 24 PEEP 6. PT ALERT TO NAME, ABLE TO MOUTH SOME WORDS, MAKES EYE CONTACT. UNABLE TO MOVE EXTREMITIES. ARM BRACE AT LEFT SHOULDER/ARM. GERRY MIDLINE IN PLACE, INFUSING D5 NS @ 80ML/HR. SKIN WARM AND DRY, INTACT. INCONTINENT, PERLA PADS IN PLACE. PT DENIES PAIN. CONNECTED TO CONTINUOUS MONITORING. BED LOCKED AND IN LOWEST POSITION. WILL CONTINUE TO MONITOR.
[2020-10-02 20:00] VITALS: BP 108/77
[2020-10-02] MEDS: MONTELUKAST SODIUM 10 MG TAB PO SCH (21:02)
--- NOTE | 2020-10-02 21:20 | NUR ---
PT ABLE TO SWALLOW VERY SMALL BITES OF APPLE SAUCE, SCHEDULED MEDS CRUSHED AND GIVEN MIXED WITH APPLE SAUCE. TOLERATED WELL, NO SIGNS OF CHOKING OR DIFFICULTY BREATHING/SWALLOWING. FED PT AND GAVE APPLE JUICE. PT ASKING FOR MILK AND COMPLAINING SHE IS HUNGRY. SLOWLY FED PT SOME APPLE SAUCE, SOME JUICE, AND WATER MIXED WITH MILK. PROVIDED ORAL CARE. SAFETY MEASURES IN PLACE.
--- NOTE | 2020-10-02 23:05 | NUR ---
PT HAD A MODERATE SIZED BOWEL MOVEMENT. PROVIDED SKIN CARE AND PERINEAL CARE. SKIN INTACT. OFFLOADED PRESSURE AREAS. HOB 30 DEGREES, SIDE RAILS UP, BED LOCKED AND IN LOWEST POSITION. PT DENIES PAIN. WILL CONTINUE TO MONITOR.
[2020-10-03] VITALS: BP 113/61
[2020-10-03] MEDS: PIPERACILLIN/TAZOBACTAM 3.375 GM in DEXTROSE 5% 50 ML IV SCH ×4 (00:04→17:13)
--- NOTE | 2020-10-03 01:35 | NUR ---
NO SIGNS OF DISTRESS, PT SLEEPING, VISIBLE CHEST RISE AND FALL, ALL VITALS WITHIN RANGE. SAFETY MEASURES IN PLACE.
--- NOTE | 2020-10-03 03:06 | NUR ---
PT HAS EYES CLOSED, RESTING COMFORTABLY. ALERT TO VOICE/NAME. ABLE TO MOUTH WORDS. NO SIGNS OF DISTRESS. BED LOCKED AND IN LOWEST POSITION, SIDE RAILS UP. PT REQUESTS TO KEEP HEAD UP.
[2020-10-03 04:00] VITALS: BP 156/82
[2020-10-03 04:54] VITALS: BP 156/82
--- NOTE | 2020-10-03 05:15 | NUR ---
SPONGE BATH, PERINEAL CARE, AND ORAL CARE PROVIDED. LARGE LOOSE BOWEL MOVEMENT NOTED. PT TOLERATED CARE FAIRLY. MODERATE AMOUNT OF CREAMY WHITE SECRETIONS AT ETT AND IN MOUTH. PT COUGHS INTERMITTENTLY. ALL OTHER VITALS WITHIN RANGE, PT DENIES PAIN. TURNED AND REPOSITIONED.
[2020-10-03] MEDS: BLOOD GLUCOSE MONITORING 1 DEV DEV FS SCH ×4 (07:04→21:24)
[2020-10-03] MEDS: INSULIN LISPRO SLIDING SCALE 100 UNITS/ML VIAL SUBQ PRN ×2 (07:05→16:25)
--- NOTE | 2020-10-03 07:05 | NUR ---
RECEIVED REPORT FROM STRAW HAT BRUSHER. AOX2, ABLE TO MAKE NEEDS KNOWN BY MOUTHING WORDS, NO C/O PAIN, BREATHING EVEN AND UNLABORED, TRACH TO VENT: AC/PC FIO2 24%, RATE 24, PEEP 6, SATURATING AT 100%. TELE MONITOR ATTACHED. SKIN INTACT. WITH GERRY MIDLINE, PATENT AND INTACT RUNNING D5NS AT 80CC/HR. SAFETY PRECAUTIONS IN PLACE. CALL LIGHT WITHIN REACH. ISOLATION PRECAUTIONS OBSERVED. WILL CONTINUE TO MONITOR.
[2020-10-03 07:09] LABS: ANION GAP 15.5 (8-16); CARBON DIOXIDE 21.4 mmol/L (21-32); CHLORIDE 104 mmol/L (98-107); CREATININE 0.7 mg/dL (0.6-1.3); GLUCOSE 212 mg/dL (74-106); SODIUM SERUM 138 mmol/L (136-145); UREA NITROGEN, BLOOD 19 mg/dL (7-18)
[2020-10-03 07:15] LABS: POTASSIUM 2.9 mmol/L (3.5-5.1)
[2020-10-03] MEDS: DEXT 5% / NACL 0.9% 500 ML IV SCH ×3 (07:30→17:34)
--- NOTE | 2020-10-03 07:38 | NUR ---
RECEIVED ON A Acoustic TechnologiesSCAPE R860 VENTILATOR PLUGGED INTO RED OUTLET TOLERATING WELL WITHOUT ADVERSE REACTIONS NOTED TO A PORTEX DCT #7 AIRWAY SECURED WITH A SUZANNE TRACH TIE CUFF PRESSURE CHECKED NOTED AMBU BAG AT BEDSIDE STABLE LOC AWAKE GOOD CHEST RISE DEEP TRACHEAL SUCTION FOR LARGE THICK YELLOW SECRETIONS AIRWAY PATENT
[2020-10-03 07:40] LABS: MAGNESIUM 1.5 mg/dL (1.8-2.4); PHOSPHORUS 1.7 mg/dL (2.5-4.9)
[2020-10-03 08:00] VITALS: BP 144/74
[2020-10-03] MEDS: LEVOTHYROXINE 0.112 MG TAB PO SCH (08:26)
[2020-10-03] MEDS: PANTOPRAZOLE 40 MG INJ VIAL IVP SCH (08:26)
[2020-10-03] MEDS: GABAPENTIN 100 MG CAP PO SCH ×2 (08:26→20:31)
[2020-10-03] MEDS: ASPIRIN 81 MG TAB.CHEW PO SCH (08:26)
[2020-10-03] MEDS: TIMOLOL OP 0.5% 5 ML BTL OP SCH ×2 (08:33→20:31)
[2020-10-03] MEDS: BRIMONIDINE TARTRATE 0.2% OP 5 ML BTL OP SCH ×2 (08:33→20:30)
--- NOTE | 2020-10-03 08:50 | NUR ---
DUE MEDS CRUSHED AND MIXED WITH APPLE SAUCE. PT REFUSED BREAKFAST AND ONLY TOOK A FEW SIPS OF GLUCERNA
[2020-10-03 09:31] LABS: HEMATOCRIT 23.7 % (36-48); HEMOGLOBIN 8.2 g/dL (12.0-16.0); LYMPHOCYTES # (AUTO) 1.4 K/uL (2.5-16.5); LYMPHOCYTES % (AUTO) 13.4 % (20.5-51.1); MEAN CORPUSCULAR HEMOGLOBIN 34 pg (27-31); MEAN CORPUSCULAR HGB CONC 35 g/dL (33-37); MEAN CORPUSCULAR VOLUME 97.7 fL (80-94); MONOCYTES # (AUTO) 0.6 K/uL (0.8-1.0); MONOCYTES % (AUTO) 5.9 % (1.7-9.3); NEUTROPHILS # (AUTO) 8.5 K/uL (1.8-7.7); NEUTROPHILS % (AUTO) 80.7 % (42.2-75.2); PLATELET COUNT (AUTO) 227 K/uL (140-450); RED BLOOD CELL COUNT(AUTO) 2.42 MIL/uL (4.20-5.40); RED CELL DISTRIBUTION WIDTH 14.4 % (11.6-13.7); WHITE BLOOD COUNT (AUTO) 10.5 K/uL (4.8-10.8)
--- NOTE | 2020-10-03 09:47 | NUR ---
RESTING COMFORTABLY EQUAL CHEST RISE DEEP TRACHEAL SUCTION FOR MODERATE THICK YELLOW SECRETIONS AIRWAY PATENT
[2020-10-03] MEDS: POTASSIUM CHLORIDE 40 MEQ, LIDOCAINE MPF 1% 25 MG in NACL 0.9% 250 ML IV PRN (10:00)
--- NOTE | 2020-10-03 11:20 | NUR ---
BLOOD SUGAR 151. COVERAGE GIVEN
--- NOTE | 2020-10-03 11:20 | NUR ---
NO SOB NOTED GOOD CHEST RISE NO SUCTIONING AT THIS TIME ADMINISTRATIVE MEDICAL DIRECTOR TO MONITOR
[2020-10-03 12:00] VITALS: BP 136/77
--- NOTE | 2020-10-03 13:10 | NUR ---
STABLE NO DISTRESS NOTED GOOD CHEST RISE DEEP TRACHEAL SUCTION FOR MODERATE SEMI THICK YELLOW SECRETIONS AIRWAY PATENT
--- NOTE | 2020-10-03 13:31 | NUR ---
PT ASLEEP IN BED. NO APPARENT DISTRESS, FLACC 0, NO SOB
--- NOTE | 2020-10-03 15:45 | NUR ---
RESTING COMFORTABLY NO DISTRESS NOTED GOOD CHEST RISE
[2020-10-03 16:00] VITALS: BP 141/95
--- NOTE | 2020-10-03 16:45 | NUR ---
BLOOD SUGAR 164. COVERAGE GIVEN
[2020-10-03] MEDS ORDERED: MAG SULF 2000 MG/WATER PREMIX 50 ML IV ONE (19:00)
[2020-10-03] MEDS ORDERED: KCL 20 MEQ/WATER INJ PREMIX 100 ML IV ONE (19:20)
--- NOTE | 2020-10-03 19:26 | NUR ---
ENDORSED TO [employer] SALES COUNTER MANAGER FOR CONTINUITY OF CARE
--- NOTE | 2020-10-03 19:45 | NUR ---
PT HAS EYES OPEN, ABLE TO EXPRESS NEEDS/WANTS. GENERALIZED WEAKNESS/ RIGID. SR ON MONITOR 80-90S. S1 S2, +2 PITTING EDEMA TO BUE NOTED, +2 RADIAL PULSES/ +1 PEDAL PULSES NOTED. TRACH TO VENT PORTEX SIZE 7, THICK FROTHY OPAQUE SPUTUM NOTED. CLEAR/DIMINISHED BREATH SOUNDS. AC/PC 24% FIO2 R 24 PEEP5. ABD SOFT NON DISTENDED. POOR PO INTAKE/ APPETITE. INCONTINENT TO URINE/STOOL. SKIN INTACT, BLANCHABLE REDNESS TO BUTTOCKS AREA. BED LOCKED IN LOWEST POSITION. SAFETY PRECAUTIONS IN PLACE. HOB>30 DEGREES. WILL CONTINUE TO OBSERVE.
--- NOTE | 2020-10-03 20:16 | NUR ---
RECEIVED PT FROM DAY SHIFT ON SETTING PC 24 FIO2 24%, R 24,PEEP 12. PT TRACH WITH PORTEX 7. PT IN PRONE POSITION VENTILATOR PLUGGED TO THE RED OUTLET. BVM @BEDSIDE. ALARMS SET AUDIBLE. AIRWAY IS PATENT, NO SIGN OF RESPIRATORY DISTRESS. WILL CONTINUE TO MONITOR.
[2020-10-03] MEDS: MONTELUKAST SODIUM 10 MG TAB PO SCH (20:31)
--- NOTE | 2020-10-03 21:15 | NUR ---
BS 144. NO COVERAGE PER SLIDING SCALE
--- NOTE | 2020-10-03 21:57 | NUR ---
spoke with daughter; alisha, updated regarding pt condition. alisha expressed her concerns regarding discharge and wanting to speak to MD. contact info set aside and placed on chart, will update am shift/MD. no acute distress noted. will continue to observe.
[2020-10-04] VITALS: BP 154/68
--- NOTE | 2020-10-04 00:18 | NUR ---
PT TURNED AND REPOSITIONED, VAP ORAL CARE DONE, NO ACUTE DISTRESS NOTED. WILL CONTINUE TO OBSERVE.
[2020-10-04] MEDS: PIPERACILLIN/TAZOBACTAM 3.375 GM in DEXTROSE 5% 50 ML IV SCH ×4 (00:55→17:11)
[2020-10-04] MEDS: DEXT 5% / NACL 0.9% 500 ML IV SCH ×4 (01:16→17:44)
--- NOTE | 2020-10-04 04:30 | NUR ---
PT TURNED REPOSITIONED, VAP ORAL CARE DONE. FLACC 0. NO S/S OF DISTRESS NOTED
[2020-10-04] MEDS: INSULIN LISPRO SLIDING SCALE 100 UNITS/ML VIAL SUBQ PRN ×2 (06:22→12:45)
[2020-10-04] MEDS: BLOOD GLUCOSE MONITORING 1 DEV DEV FS SCH ×3 (06:44→16:30)
[2020-10-04 06:58] LABS: BASOPHILS % (AUTO) 0.1 % (0.0-2.0); EOSINOPHILS % (AUTO) 0.1 % (0.0-4.0); HEMOGLOBIN 8.3 g/dL (12.0-16.0); LYMPHOCYTES % (AUTO) 11.7 % (20.5-51.1); MEAN CORPUSCULAR HEMOGLOBIN 34 pg (27-31); MEAN CORPUSCULAR HGB CONC 34 g/dL (33-37); MEAN CORPUSCULAR VOLUME 98.4 fL (80-94); MONOCYTES # (AUTO) 0.5 K/uL (0.8-1.0); MONOCYTES % (AUTO) 5.8 % (1.7-9.3); NEUTROPHILS % (AUTO) 82.3 % (42.2-75.2); PLATELET COUNT (AUTO) 221 K/uL (140-450); RED BLOOD CELL COUNT(AUTO) 2.44 MIL/uL (4.20-5.40); RED CELL DISTRIBUTION WIDTH 14.1 % (11.6-13.7); WHITE BLOOD COUNT (AUTO) 8.5 K/uL (4.8-10.8)
--- NOTE | 2020-10-04 07:30 | NUR ---
REPORT GIVEN TO DAY SHIFT FOR CONTINUITY OF CARE
--- NOTE | 2020-10-04 07:31 | NUR ---
RECEIVED REPORT FROM MATERIAL STRESS TESTER NURSE. PATIENT LYING DOWN IN BED. NO DISTRESS NOTED. ON TRACH TO VENT WITH SETTINGS: ACPC FIO2:24%, PINSP:24, RATE:24, PEEP:5, PMAX 40 WITH O2 SAT AT 98%. AAOX1, CALM, COOPERATIVE, SKIN COLOR APPROPRIATE TO ETHNICITY, WARM TO TOUCH. SKIN INTACT. IV SITE INTACT, PATENT, AND INFUSING IVF PER MD ORDERS. REVIEWED PLAN OF CARE WITH PATIENT. PATIENT VERBALIZED UNDERSTANDING. SAFETY MEASURES IN PLACE, CALL LIGHT WITHIN REACH. WILL CONTINUE TO MONITOR.
[2020-10-04 07:35] LABS: ANION GAP 12.4 (8-16); CARBON DIOXIDE 21.9 mmol/L (21-32); CHLORIDE 108 mmol/L (98-107); CREATININE 0.6 mg/dL (0.6-1.3); GLUCOSE 181 mg/dL (74-106); POTASSIUM 3.3 mmol/L (3.5-5.1); SODIUM SERUM 139 mmol/L (136-145); UREA NITROGEN, BLOOD 14 mg/dL (7-18)
[2020-10-04 08:00] VITALS: BP 147/75
[2020-10-04 08:22] LABS: PHOSPHORUS 2.3 mg/dL (2.5-4.9)
[2020-10-04] MEDS: GABAPENTIN 100 MG CAP PO SCH (09:36)
[2020-10-04] MEDS: LEVOTHYROXINE 0.112 MG TAB PO SCH (09:36)
[2020-10-04] MEDS: TIMOLOL OP 0.5% 5 ML BTL OP SCH (09:36)
[2020-10-04] MEDS: BRIMONIDINE TARTRATE 0.2% OP 5 ML BTL OP SCH (09:36)
[2020-10-04] MEDS: ASPIRIN 81 MG TAB.CHEW PO SCH (09:36)
[2020-10-04] MEDS: PANTOPRAZOLE 40 MG INJ VIAL IVP SCH (09:36)
--- NOTE | 2020-10-04 10:01 | NUR ---
SCHEDULED MEDICATIONS DUE GIVEN. WILL CONTINUE TO MONITOR.
[2020-10-04] MEDS ORDERED: TIM.5OS OP (10:12)
[2020-10-04] MEDS ORDERED: METO25TA PO (10:12)
[2020-10-04] MEDS ORDERED: PIPE1SOL IV (10:12)
[2020-10-04] MEDS: POTASSIUM CHLORIDE 40 MEQ, LIDOCAINE MPF 1% 25 MG in NACL 0.9% 250 ML IV PRN (11:39)
--- NOTE | 2020-10-04 12:46 | NUR ---
SCHEDULED MEDICATIONS DUE GIVEN. WILL CONTINUE TO MONITOR.
--- NOTE | 2020-10-04 14:19 | NUR ---
STABLE RESTING WELL GOOD CHEST RISE DEEP TRACHEAL SUCTION FOR LARGE THICK YELLOW SECRETIONS
--- NOTE | 2020-10-04 14:45 | NUR ---
[place] [facility] [place] SELENA GUTIERREZ. ANSWERED ALL HER QUESTIONS REGARDING TRANSFER, NEW/CHANGED MEDICATION REGIMEN AND FOLLOW-UP WITH PCP. NOTIFIED HER OF PICKUP TIME OF 1744 BY [facility]. DAUGHTER RONEL CALLED EARLIER AND NOTIFIED HER OF PATIENT BEING TRANSFERRED [place] [facility]. DISCHARGE INSTRUCTIONS PROVIDED TO PATIENT. PATIENT NODDED UNDERSTANDING. ABLE TO UNDERSTAND BUT WITH VENTILATED SPEECH. NOTIFIED PATIENT OF PICKUP TIME OF 1744
--- NOTE | 2020-10-04 15:24 | NUR ---
*ST: Bedside Swallow Evaluation* Pt is 80 yo F BIBEMS from [facility] 09/30/2020 c hypoxia. PMHx [id number], spinal cord injury, upper extremity paralysis, asthma, anxiety, insomnia, CAD, hypothyroid, DM2, HTN, glaucoma. CXR 09/29 - pulmonary vascular congestion; small bilat pleural effusions; R mid & bilat lower lung zone patchy airspace opacities wc may rep edema, pna, or ATX. Noted pt started on Puree/Thin Liquids diet 09/30. Pt has Portex 7 cuffed trach connected to vent FiO2 24%. Per [facility] RN, Yung, pt was D/C from skilled swallow therapy services a while ago, received MS/[place] Thick Liquids diet at with feed-assist, taking ~1 hour to complete a meal. [facility] RN remarked that Pt is a picky eater and noted to be losing weight. Cleared with RN, Forrest, for BDSE. Per RN, pt has very poor appetite but no overt coughing observed with PO meds crushed and mixed with food. Pt seen bedside, on trach connected to vent, alert, occasional phonation emitted/elicited. Pt made needs known by mouthing/intermittent phonation of simple [place] phrases. O2 sat ~97% throughout entire session. ~2oz vanilla Glucerna by tsp given as pt adamantly declined all other PO's offered (i.e., canned MS pears, apple sauce, vanilla pudding, thickened orange juice, thickened apple juice, saltines) by turning her head away from tsp stimuli or mouthing, "No," and keeping her mouth tightly closed. With the Glucerna trials, pt had fair tsp sipping/stripping, slow oral phase, suspect lingual pumping, delay swallow trigger, fair laryngeal excursion, no overt coughing nor throat clearing with trials. Videofluorosopic Swallow Study (VFSS) would be beneficial to R/O aspiration risks and further assess oral-pharyngeal swallow on vent with and without speaking valve in place; however, given Pt's participation at bedside, recommend hold possible OP VFSS until Pt demonstrates consistent participation. Plan of care d/w pt and pt's RN. P: Rec MS/[place] Thick Liquids vs Puree/[place] Thick Liquids consistency by tsp, feed slowly Follow safe swallow strategies, oral care, aspiration precautions Nsg to monitor and notify [employer] of changes in status -Tiera Crockett MA, [facility] Addendum: 10/04/20 at [address] Amended: Links added.
[2020-10-04 16:00] VITALS: BP 145/86
--- NOTE | 2020-10-04 17:12 | NUR ---
SCHEDULED MEDICATIONS DUE GIVEN. WILL CONTINUE TO MONITOR.
--- NOTE | 2020-10-04 17:23 | NUR ---
NO EVIDENCE OF RESPIRATORY DISTRESS NOTED GOOD CHEST RISE AIRWAY PATENT
--- NOTE | 2020-10-04 18:40 | NUR ---
PATIENT TRANSFERRED TO [facility] AT THIS TIME IN STABLE CONDITION VIA [facility].
== END 2020-10-04 18:41 | DRG 870 ==
LOC: MED 19:45 → MTU 09-30 00:28
PROVIDERS: ADMIT Family Medicine; ATTEND Family Medicine
PROC: 5A1955Z Respiratory Ventilation, Greater than 96 Consecutive Hours (ICD-10-PCS; principal; 2020-09-29)
PROC: 0RSKXZZ Reposition Left Shoulder Joint, External Approach (ICD-10-PCS; 2020-09-29)
PROC: 05HY33Z Insertion of Infusion Device into Upper Vein, Percutaneous Approach (ICD-10-PCS; 2020-09-30)
PROC: B54NZZA Ultrasonography of Left Upper Extremity Veins, Guidance (ICD-10-PCS; 2020-09-30)
DX: A41.9 Sepsis, unspecified organism (principal); J69.0 Pneumonitis due to inhalation of food and vomit; J96.20 Acute and chronic respiratory failure, unspecified whether with hypoxia or hypercapnia; E43 Unspecified severe protein-calorie malnutrition; G82.50 Quadriplegia, unspecified; E87.1 Hypo-osmolality and hyponatremia; D64.9 Anemia, unspecified; I10 Essential (primary) hypertension; I25.10 Atherosclerotic heart disease of native coronary artery without angina pectoris; J45.909 Unspecified asthma, uncomplicated; S43.005A Unspecified dislocation of left shoulder joint, initial encounter; E11.40 Type 2 diabetes mellitus with diabetic neuropathy, unspecified; G83.9 Paralytic syndrome, unspecified; Z20.828 Contact with and (suspected) exposure to other viral communicable diseases; E03.9 Hypothyroidism, unspecified; X58.XXXA Exposure to other specified factors, initial encounter; E87.6 Hypokalemia; R79.89 Other specified abnormal findings of blood chemistry; Z93.0 Tracheostomy status; Z88.5 Allergy status to narcotic agent; Z88.8 Allergy status to other drugs, medicaments and biological substances; Z79.82 Long term (current) use of aspirin; Z79.899 Other long term (current) drug therapy; Y93.89 Activity, other specified; Y92.89 Other specified places as the place of occurrence of the external cause; Y99.8 Other external cause status; Z68.25 Body mass index [BMI] 25.0-25.9, adult
CPT/HCPCS: 23650; 36415; 36600; 71045; 73030; 80048; 80053; 81001; 82150; 82550; 82728; 82803; 82948; 83036; 83605; 83615; 83690; 83735; 83880; 84100; 84436; 84439; 84443; 84479; 84484; 85025; 85379; 85384; 85610; 85730; 86140; 87040; 87081; 87086; 87420; 87804; 92610; 93005; 94003; 96365; 96367; 99291; C9113; J2001; J2543; J3370; J3475; J3480; J3490; J7030; J7060; U0003

== ENCOUNTER 2021-02-24 15:08 | Emergency (ER) | payer MEDICARE, MEDICAID ==
[~2021-02-24] VITALS: Ht 162.6 cm; Wt 59.0 kg
[~2021-02-24 15:08] MED LIST: ASPI-1884 PO; DOCU-299 PO; FURO-572 PO; GABA-636 PO; LEVO0.114 PO; LISI20TA29 PO; MELA5TAB6 PO; METO25TA GT; METO25TA PO; MONT10TA35 PO; POTA10TE30 PO; SENN-74 PO
[2021-02-24 15:20] VITALS: BP_SYST 142; BP_SYST 243; BP_DIAS 101; BP_DIAS 78
[2021-02-24] MEDS ORDERED: ALBUTEROL SULFATE/IPRATROPIU 3 ML SOL IH ONE ×2 (15:35→15:38)
[2021-02-24] MEDS ORDERED: DEXAMETHASONE 10 MG/ML VIAL IVP ONE (16:00)
[2021-02-24 16:01] LABS: BASOPHILS # (AUTO) 0.1 K/uL (0.00-0.22); BASOPHILS % (AUTO) 0.3 % (0.0-2.0); EOSINOPHILS # (AUTO) 0.1 K/uL (0-0.4); EOSINOPHILS % (AUTO) 0.6 % (0.0-4.0); HEMATOCRIT 31.2 % (36-48); HEMOGLOBIN 10.2 g/dL (12.0-16.0); LYMPHOCYTES # (AUTO) 3.9 K/uL (2.5-16.5); LYMPHOCYTES % (AUTO) 19.7 % (20.5-51.1); MEAN CORPUSCULAR HEMOGLOBIN 32 pg (27-31); MEAN CORPUSCULAR HGB CONC 33 g/dL (33-37); MEAN CORPUSCULAR VOLUME 97.6 fL (80-94); MONOCYTES # (AUTO) 0.9 K/uL (0.8-1.0); MONOCYTES % (AUTO) 4.8 % (1.7-9.3); NEUTROPHILS # (AUTO) 14.6 K/uL (1.8-7.7); NEUTROPHILS % (AUTO) 74.6 % (42.2-75.2); PLATELET COUNT (AUTO) 647 K/uL (140-450); RED BLOOD CELL COUNT(AUTO) 3.19 MIL/uL (4.20-5.40); RED CELL DISTRIBUTION WIDTH 13.5 % (11.6-13.7); WHITE BLOOD COUNT (AUTO) 19.6 K/uL (4.8-10.8)
--- NOTE | 2021-02-24 16:04 | NUR ---
PT BIBA 80F FROM [facility], WITH CC DESATURATION, PER EMS PT WAS SATURATING ARROUND THE 80S ON THE VENT, AND WENT UP TO THE 90S WHEN BAGGED. PT HX RESPIRATORY FAILURE, CHF, NEUROPATHY, HTN , HYPOTHYROID, CONSTIPATION, GLAUCOMA, INSOMNIA, CERVICAL SPINE CORD INJURY. TRACH TO VENT.
[2021-02-24 16:17] LABS: ALBUMIN 2.6 g/dL (3.4-5.0); ANION GAP 8.9 (8-16); ASPARTATE AMINOTRANSFERASE 19 U/L (15-37); CARBON DIOXIDE 30.2 mmol/L (21-32); CHLORIDE 97 mmol/L (98-107); CREATININE 0.7 mg/dL (0.6-1.3); GLUCOSE 308 mg/dL (74-106); POTASSIUM 5.1 mmol/L (3.5-5.1); SODIUM SERUM 131 mmol/L (136-145); TOTAL BILIRUBIN 0.2 mg/dL (0.0-1.0); UREA NITROGEN, BLOOD 28 mg/dL (7-18)
--- NOTE | 2021-02-24 16:47 | NUR ---
PAYNE CATH INSERTED, PT TOLERATED WELL WILL CONTINUE TO MONITOR.
[2021-02-24 17:40] LABS: APPEARANCE,URINE CLEAR (CLEAR); BILIRUBIN,URINE NEGATIVE (NEGATIVE); BLOOD, URINE 1+ (NEGATIVE); COLOR,URINE YELLOW (YELLOW); LEUKOCYTE ESTERASE ,URINE NEGATIVE (NEGATIVE); NITRITE, URINE NEGATIVE (NEGATIVE); UGLUCOSE 2+ (NEGATIVE)
[2021-02-24 18:48] LABS: RBC,URINE 11-20 (MOD) /HPF (0-5)
[2021-02-24 18:49] LABS: FINE GRANULAR CASTS,URINE 0-10 /LPF (None Seen)
[2021-02-24 19:05] VITALS: BP 170/101
--- NOTE | 2021-02-24 19:30 | NUR ---
REPORT RECEIVED FROM MAGGIE WALTERS FOR CONTINUITY OF CARE
--- NOTE | 2021-02-24 19:40 | NUR ---
REPORT CALLED TO MARIJA WALTERS AT [facility] [place].
--- NOTE | 2021-02-24 19:50 | NUR ---
PAYNE CATHETER D/C. PT TOLERATED PROCEDURE.
--- NOTE | 2021-02-24 20:12 | NUR ---
[facility] TRANSPORT AT BEDSIDE
--- NOTE | 2021-02-24 20:15 | NUR ---
PER [facility] TRANSPORT TEAM. PT HAS TRACH UNABLE TO TRANSPORT AT THIS TIME. WILL CALL FOR [facility] TRANSPORT
[2021-02-24 21:34] VITALS: BP 98/53
--- NOTE | 2021-02-24 21:45 | NUR ---
Patient appears to be resting comfortably in bed. Vital Signs within normal limits. Respirations even and unlabored.
--- NOTE | 2021-02-24 22:00 | NUR ---
RECEIVED CALL FROM PT'S DAUGTHER (RONEL) UPDATED ON PT STATUS, ALL QUESTIONS AND CONCERNS ANSWERED AT THIS TIME.
--- NOTE | 2021-02-24 22:09 | NUR ---
[facility] TRANSPORT AT BEDSIDE
--- NOTE | 2021-02-24 22:14 | NUR ---
PT TAKEN BY RASHID CCT
[2021-02-24 22:20] VITALS: BP 98/53
--- NOTE | 2021-02-24 22:20 | NUR ---
Patient discharged with v/s stable. Written and verbal after care instructions given and explained. Patient verbalized understanding. Ambulance Transport with to intermediate. All questions addressed prior to discharge. Advised to follow up with PMD.
== END 2021-02-24 22:14 ==
LOC: MED 15:08
DX: J98.09 Other diseases of bronchus, not elsewhere classified (principal); E11.9 Type 2 diabetes mellitus without complications; I11.9 Hypertensive heart disease without heart failure; Z43.0 Encounter for attention to tracheostomy; Z88.5 Allergy status to narcotic agent; Z88.8 Allergy status to other drugs, medicaments and biological substances; Z20.822 Contact with and (suspected) exposure to COVID-19
CPT/HCPCS: 36415; 71045; 80053; 81001; 83880; 84484; 85025; 87040; 87070; 87205; 87426; 93005; 94640; 96374; 99285; J1100

== ENCOUNTER 2021-10-05 22:00 | Emergency (ER) | payer MEDICARE, MEDICAID ==
[~2021-10-05] VITALS: Ht 162.6 cm; Wt 59.0 kg
[2021-10-05 22:00] VITALS: BP 107/79
[~2021-10-05 22:00] MED LIST changes: +ASPI-1749 PO; -ASPI-1884 PO; +POTA10TA70 PO; -POTA10TE30 PO
--- NOTE | 2021-10-05 22:00 | NUR ---
PT SHERRIE ALS. TAKEN TO BED 10
--- NOTE | 2021-10-05 22:08 | NUR ---
Called [facility] for further report on patient. Spoke with Shirlene WALTERS and informed that daughter spoke with patient c/o on the left hand and daughter verbalized pain for the patient to the facility. per Shirlene informed that order received at 1850 on 10/04/21 order of bilateral shoulder XR & Ultrasound. the order was done in the AM and results were said that patient has a right shoulder dislocation. Per Shirlene RN need to speak with daughter about further information.
--- NOTE | 2021-10-05 22:15 | NUR ---
Called Dtr Rachelle Rutherford about further information on incident of the dislocation and verbalized that patient informed the other daughter that she had pain in the left hand so dtr asked for testing to be done. dtr got a call at around 2019 about report of the right dislocated shoulder.
--- NOTE | 2021-10-05 22:19 | NUR ---
XR AT BEDSIDE
[2021-10-05 22:27] VITALS: BP 107/79
[2021-10-06 00:54] LABS: BASOPHILS % (AUTO) 0.2 % (0.0-2.0); EOSINOPHILS # (AUTO) 0.1 K/uL (0-0.4); EOSINOPHILS % (AUTO) 0.9 % (0.0-4.0); HEMATOCRIT 26.7 % (36-48); HEMOGLOBIN 8.8 g/dL (12.0-16.0); LYMPHOCYTES # (AUTO) 1.8 K/uL (2.5-16.5); LYMPHOCYTES % (AUTO) 14.9 % (20.5-51.1); MEAN CORPUSCULAR HEMOGLOBIN 29 pg (27-31); MEAN CORPUSCULAR HGB CONC 33 g/dL (33-37); MEAN CORPUSCULAR VOLUME 88.3 fL (80-94); MONOCYTES # (AUTO) 0.8 K/uL (0.8-1.0); MONOCYTES % (AUTO) 6.8 % (1.7-9.3); NEUTROPHILS # (AUTO) 9.1 K/uL (1.8-7.7); NEUTROPHILS % (AUTO) 77.2 % (42.2-75.2); PLATELET COUNT (AUTO) 464 K/uL (140-450); RED BLOOD CELL COUNT(AUTO) 3.03 MIL/uL (4.20-5.40); RED CELL DISTRIBUTION WIDTH 15.6 % (11.6-13.7); WHITE BLOOD COUNT (AUTO) 11.8 K/uL (4.8-10.8)
[2021-10-06 01:07] LABS: ANION GAP 9.3 (8-16); ASPARTATE AMINOTRANSFERASE 17 U/L (15-37); CARBON DIOXIDE 29.9 mmol/L (21-32); CHLORIDE 95 mmol/L (98-107); CREATININE 0.5 mg/dL (0.6-1.3); GLUCOSE 161 mg/dL (74-106); POTASSIUM 4.2 mmol/L (3.5-5.1); SODIUM SERUM 130 mmol/L (136-145); TOTAL BILIRUBIN 0.2 mg/dL (0.0-1.0); UREA NITROGEN, BLOOD 19 mg/dL (7-18)
--- NOTE | 2021-10-06 01:15 | NUR ---
spoke with daughter alisha about an update on patient. daughter still showing concerns on patient about the right shoulder dislocation that patient does not have but does have ventilation acquired pneumonia.
[2021-10-06 01:34] VITALS: BP 129/72
[2021-10-06] MEDS ORDERED: LEVOFLOXACIN 750 MG/D5W PREMIX 150 ML IV ONE (02:35)
[2021-10-06] MEDS ORDERED: CEFEPIME 1,000 MG in DEXTROSE 5% 50 ML IV ONE (02:35)
[2021-10-06] MEDS ORDERED: VANCOMYCIN 1,000 MG in DEXTROSE 5% 250 ML IV ONE (02:35)
--- NOTE | 2021-10-06 03:04 | NUR ---
Called [facility] and spoke to Shirlene WALTERS in relation to which limb is inaccessible use. The left side is considered a limb alert no access there.
[2021-10-06 03:12] VITALS: BP 138/74
[2021-10-06] MEDS ORDERED: CEFEPIME 1,000 MG VIAL ONE (03:12)
--- NOTE | 2021-10-06 03:18 | NUR ---
Called daughter Rachelle Hennessytlewilber about transporting patient to a different facility. Daughter expressed confusion and not understanding the reason for tx. explained multiple times that it would be due to insurance purposes. daughter would like to know the reason and if patient is tx would like to know where patient is being tx to before consenting.
--- NOTE | 2021-10-06 03:40 | NUR ---
Spoke with Rachelle Victoria RN about tx and daughter's confusion. need to relay to the daughter that insurance is the one that needs to be talked to about with the situation as insurance handles these matters.
--- NOTE | 2021-10-06 03:48 | NUR ---
Called daughter Rachelle Rutherford to explain about the reason for transport and daughter still not understanding. Daughter would like to speak to supervisor of instruction for further information and explanation.
--- NOTE | 2021-10-06 03:51 | NUR ---
Spoke with supervisor cured meats about daughter concerns and problems. supervisor cured meats Jose G will speak with patient's daughter.
--- NOTE | 2021-10-06 04:25 | NUR ---
CALLED AND SPOKE TO DAUGHTER RONEL ([phone]) D/T HER CONCERNS OF WHY WE ARE MOVING HER MOM TO [facility]. I EXPLAINED THE PROCESS FOR INSURANCE AND [facility] WANTS THEIR MEMBERS IN THEIR HOSPITALS IF POSSIBLE. RONEL STATED THAT SHE WOULD LIKE TO WAIT UNTIL [facility] CALLS BACK TO LET US KNOW WHERE THEY ARE SENDING THE PT. AT THAT TIME, SHE WOULS LIKE TO BE CALLED BACK. I ADVISED THAT WE MAY LOOSE THE [facility] BED AND SHE SAID IT WAS OK TO WAIT.
[2021-10-06 04:48] VITALS: BP 129/75
[2021-10-06] MEDS ORDERED: VANCOMYCIN 1,000 MG VIAL ONE (05:42)
--- NOTE | 2021-10-06 06:10 | NUR ---
repositioned patient. patient tolerated well. Safety measures are in place, attached to metaphysics teacher and will continue to monitor patient.
--- NOTE | 2021-10-06 06:20 | NUR ---
Daughter Rachelle Rutherford verbalized consent to transfer patient to [facility] via Telephone consent.
--- NOTE | 2021-10-06 06:50 | NUR ---
STRAIGHT Gardiner catheter INSERTED utilizing sterile technique. Immediate return of 1.5 ml urine noted. Urine sample collected and sent to lab. Pt tolerated procedure WELL.
--- NOTE | 2021-10-06 07:06 | NUR ---
Patient to be transferred to [facility] ER. Is being transferred due to Insurance purposes. Receiving facility has accepting physician and available space. ER physician has signed transfer form. Patient or responsible green party has agreed to transfer and signed form. Patient belongings inventoried and will be sent with patient. Copy of nursing notes, lab reports, EKG, Physicians Orders and X-rays to be sent with patient. Report called to Sher WALTERS at receiving facility. [facility] ambulance service has been called for transfer. ETA is 08:15.
--- NOTE | 2021-10-06 07:15 | NUR ---
Pt report given to Ellie WALTERS and Clay WALTERS. Transfer of care at this time.
--- NOTE | 2021-10-06 07:21 | NUR ---
RECEIVED REPORT FROM SELENA GOODSON. TRANSFER OF CARE AT THIS TIME.
--- NOTE | 2021-10-06 07:22 | NUR ---
RECIEVED REPORT FROM KELLEE WALTERS
[2021-10-06 08:05] VITALS: BP 137/78
[2021-10-06 08:05] LABS: APPEARANCE,URINE CLEAR (CLEAR); BILIRUBIN,URINE NEGATIVE (NEGATIVE); BLOOD, URINE NEGATIVE (NEGATIVE); COLOR,URINE YELLOW (YELLOW); LEUKOCYTE ESTERASE ,URINE NEGATIVE (NEGATIVE); NITRITE, URINE NEGATIVE (NEGATIVE); PH,URINE 7.5 (5.0-9.0); UGLUCOSE NEGATIVE (NEGATIVE)
--- NOTE | 2021-10-06 08:39 | NUR ---
PT IS RESTING COMFORTABLY WITH HOB RAISED, RAILS UP X2, VSS, PT HAS NO COMPLAINTS AT THIS TIME
[2021-10-06 09:54] VITALS: BP 137/78
--- NOTE | 2021-10-06 09:56 | NUR ---
Patient to be transferred to [facility]. Is being transferred due to HIGHER LEVEL OF CARE. Receiving facility has accepting physician and available space. ER physician has signed transfer form. Patient or responsible alliance party has agreed to transfer and signed form. Patient belongings inventoried and will be sent with patient. Copy of nursing notes, lab reports, EKG, Physicians Orders and X-rays to be sent with patient. KELLEE RN called to GIVE REPORT TO receiving facility. [facility] ambulance service has been called for transfer. ETA is 40 MIN.
--- NOTE | 2021-10-07 23:00 | NUR ---
LATE ENTRY----VANCOCIN IV ENDED AT 1230
== END 2021-10-06 09:56 | disposition short-term general hospital (02) ==
LOC: MED 22:00
DX: J95.851 Ventilator associated pneumonia (principal); Z20.822 Contact with and (suspected) exposure to COVID-19; J90 Pleural effusion, not elsewhere classified; E87.1 Hypo-osmolality and hyponatremia; E11.65 Type 2 diabetes mellitus with hyperglycemia; J96.10 Chronic respiratory failure, unspecified whether with hypoxia or hypercapnia; I11.0 Hypertensive heart disease with heart failure; I50.9 Heart failure, unspecified; Z79.82 Long term (current) use of aspirin; Z79.899 Other long term (current) drug therapy; Z88.5 Allergy status to narcotic agent; Z88.8 Allergy status to other drugs, medicaments and biological substances
CPT/HCPCS: 36415; 71045; 73020; 80053; 81003; 83605; 83880; 84484; 85025; 87040; 87426; 87804; 93005; 96365; 96366; 96367; 99285; J0692; J1956; J3370; Q0092

== ENCOUNTER 2022-04-28 18:43 | Inpatient (IN) | payer MEDICARE, MEDICAID ==
[~2022-04-28] VITALS: Ht 165.1 cm; Wt 158.8 kg
[~2022-04-28 18:43] MED LIST changes: +CLON2TAB PO; +DOCU-299 GT; -DOCU-299 PO; +GENT10SO8 IV; +LEVO0.114 GT; -LEVO0.114 PO; +LOV40I SUBQ; +MELA1TAB32 PO; -MELA5TAB6 PO; -METO25TA PO; +MONT10TA35 GT; -MONT10TA35 PO; +PRED5DRO RIGHT EYE; +TIMO5DRO LEFT EYE; +ZOS3.375PM IV
--- NOTE | 2022-04-28 18:43 | NUR ---
SHERRIE COWART TAKEN TO BED #1
[2022-04-28] MEDS ORDERED: NACL 0.9% 1,000 ML IV ONE (18:55)
[2022-04-28 19:02] VITALS: BP 83/32
--- NOTE | 2022-04-28 19:12 | NUR ---
RT AT BEDSIDE. 22G IV CATH PLACED IN RIGHT LEG
[2022-04-28 20:26] LABS: BASOPHILS % (AUTO) 0.1 % (0.0-2.0); HEMATOCRIT 27.1 % (36-48); HEMOGLOBIN 8.5 g/dL (12.0-16.0); LYMPHOCYTES # (AUTO) 0.5 K/uL (2.5-16.5); LYMPHOCYTES % (AUTO) 2.3 % (20.5-51.1); MEAN CORPUSCULAR HEMOGLOBIN 29 pg (27-31); MEAN CORPUSCULAR HGB CONC 32 g/dL (33-37); MONOCYTES % (AUTO) 4.5 % (1.7-9.3); NEUTROPHILS # (AUTO) 20.8 K/uL (1.8-7.7); NEUTROPHILS % (AUTO) 93.1 % (42.2-75.2); PLATELET COUNT (AUTO) 260 K/uL (140-450); RED BLOOD CELL COUNT(AUTO) 2.91 MIL/uL (4.20-5.40); RED CELL DISTRIBUTION WIDTH 16.8 % (11.6-13.7); WHITE BLOOD COUNT (AUTO) 22.4 K/uL (4.8-10.8)
[2022-04-28 20:52] LABS: ALBUMIN 1.8 g/dL (3.4-5.0); ANION GAP 11.2 (8-16); ASPARTATE AMINOTRANSFERASE 16 U/L (15-37); CARBON DIOXIDE 27.2 mmol/L (21-32); CHLORIDE 91 mmol/L (98-107); CREATININE 1.3 mg/dL (0.6-1.3); GLUCOSE 150 mg/dL (74-106); POTASSIUM 4.4 mmol/L (3.5-5.1); SODIUM SERUM 125 mmol/L (136-145); TOTAL BILIRUBIN 0.2 mg/dL (0.0-1.0); UREA NITROGEN, BLOOD 56 mg/dL (7-18)
[2022-04-28] MEDS ORDERED: AZITHROMYCIN 500 MG in DEXTROSE 5% 250 ML IV SCH (21:25)
--- NOTE | 2022-04-28 22:18 | NUR ---
ED MD AT BEDSIDE PLACING R FEMORAL CENTRAL TLC. NOTED PT TO DESATURATE TO 30'S%, BP 74/34, FAINT FEMORAL PULSES FELT. RT AT BEDISIDE PLACED PT ON AMBU BAG. LEVOPHED DRIP STARTED AT 5 MCG/MIN, O2 SAT INCREASED TO 90%'S. PT'S DAUGHTER OUTSIDE ROOM GIVEN UPDATE BY ED MD DR. NOLEN. ALL SAFETY MEASURES IN PLACE INCLUDING BED LOCKED AT LOWEST POSITION. WILL CONTINUE TO CLOSELY MONITOR AND FOLLOW POC.
--- NOTE | 2022-04-28 22:18 | NUR ---
Verbal order for levophed 4mg IVF, starting rate 5mcg/min received from Dr. Quiroz
--- NOTE | 2022-04-28 22:55 | NUR ---
INOC[facility]IO AUTHORIZED ADMIT TO [facility], AUTH NUMBER IN CALL LOG
[2022-04-28] MEDS ORDERED: VANCOMYCIN 1,000 MG in DEXTROSE 5% 250 ML IV ONE (23:00)
[2022-04-28] MEDS ORDERED: CLINDAMYCIN 900 MG in DEXTROSE 5% 100 ML IV ONE (23:00)
[2022-04-28] MEDS ORDERED: cefTRIAXone 1,000 MG VIAL ONE (23:18)
[2022-04-28] MEDS ORDERED: AZITHROMYCIN 500 MG INJ VIAL IV ONE (23:19)
[2022-04-29] MEDS ORDERED: NOREPINEPHRINE 4 MG in DEXTROSE 5% 250 ML IV ONE ×2
[2022-04-29] MEDS ORDERED: CLINDAMYCIN 900 MG/6 ML VIAL IV ONE (00:26)
[2022-04-29] MEDS ORDERED: SODIUM BICARBONATE 8.4% PFS 50 MEQ/50 ML SYR IVP ONE (00:55)
[2022-04-29] MEDS ORDERED: VANCOMYCIN 1,000 MG VIAL ONE (02:06)
[2022-04-29] MEDS ORDERED: DOPamine 400 MG/D5W PREMIX 250 ML IV ONE ×3 (02:10→09:22)
[2022-04-29 02:38] VITALS: BP 93/44
[2022-04-29] MEDS ORDERED: NOREPINEPHRINE 4 MG/4 ML VIAL IV ONE ×4 (02:52→08:02)
[2022-04-29] MEDS ORDERED: OFLO5SOL27 RIGHT EYE (04:07)
[2022-04-29] MEDS ORDERED: ERYT5OIN51 OP (04:07)
[2022-04-29] MEDS ORDERED: ALPOS LEFT EYE (04:07)
[2022-04-29] MEDS ORDERED: LISI40TA12 GT (04:07)
[2022-04-29] MEDS ORDERED: FERR75LI22 GT (04:07)
[2022-04-29] MEDS ORDERED: AMLO10TA89 GT (04:07)
[2022-04-29] MEDS ORDERED: SODI100076 GT (04:07)
--- NOTE | 2022-04-29 06:00 | NUR ---
DR. GUAMAN AT BEDSIDE WITH PT'S DAUGHTERS DISCUSSING CODE STATUS AND TREATMENT OPTIONS. PT'S DAUGHTERS DECIDED TO HAVE PT DNR WITH NO CPR CHEST COMPRESSIONS DONE, WILL CONTINUE WITH CURRENT DRIPS. ALL QUESTIONS ANSWERED.
--- NOTE | 2022-04-29 07:21 | NUR ---
BEDSIDE REPORT GIVEN TO DAYSHIFT NURSE FOR CONTINUITY OF CARE. PT'S DAUGHTER CURRENTLY AT BEDSIDE. O2 SAT 90%.
--- NOTE | 2022-04-29 07:30 | NUR ---
recdeived pt in gurney trach to vent with coffee ground drainage around trach. abdomen distended and firm, gtube in place clamped. right femoral line triple lumen noted infusing levophed and dopamine per orders. family at bedside, updated on care. pending icu orders
--- NOTE | 2022-04-29 07:40 | NUR ---
RECEIVED ON A [employer] CARESCAPE R860 VENTILATOR PUGGED INTO RED OUTLET TOLERATING WELL WITHOUT ADVERSE REACTIONS NOTED TO A PORTEX #7 AIRWAY SECURED WITH A TRACH TIE CUFF PRESSURE CHECKED NOTED AMBU BAG AT BEDSIDE RESTING COMFORTABLY GOOD CHEST RISE DEEP TRACHEAL SUCTION FOR LARGE THICK BROWNISH SECRETIONS AIRWAY PATENT FAMILY AT BEDSIDE
[2022-04-29] MEDS ORDERED: VASOPRESSIN 20 UNITS in NACL 0.9% 250 ML IV SCH ×2 (08:20→09:35)
[2022-04-29] MEDS ORDERED: VASOPRESSIN 20 UNITS/ML VIAL ONE (08:22)
--- NOTE | 2022-04-29 08:30 | NUR ---
agricultural production engineer at bedside started vasopressin per order, levophed maxed at 30 mcg, dopamine at 20mcg. pt remains hypotensive. pt being tx to icu for continuation of care
--- NOTE | 2022-04-29 08:35 | NUR ---
pt tx to icu
--- NOTE | 2022-04-29 08:45 | NUR ---
TRANSFERRED PT TO ICU BED 1. RECEIVED REPORT FROM ER NURSE. ADMITTED 82 Y/O FEMALE WITH ADMITTING DX OF SEPSIS/HYPOTENSION. PT OBTUNDED AT BASE LINE, EYES CLOSED PUPILS NON REACTIVE, NO GAG REFLEX. TRACH TO VENT ACPC FIO2 85%, RATE 18, PEEP 5, O2SAT 92-95%. WITH RIGHT FEMORAL TLC RUNNING LEVOPHED AT 30MCG/MIN, DOPAMINE 20MCG/KG/MIN AND VASOPRESSIN 0.04 UNITS/MIN. BP 74/45. NO S/S OF PAIN. ABD FIRM AND DISTENDED. WITH BROWNISH RED SECRETIONS COMING OUT OF MOUTH AND TRACH SITE, MD AWARE. GT CONNECTED TO LOW INTERMITTENT SUCTION
[2022-04-29 08:50] VITALS: BP 74/45
[2022-04-29] MEDS ORDERED: PIPERACILLIN/TAZOBACTAM 3.375 GM in DEXTROSE 5% 50 ML IV ONE (08:55)
[2022-04-29] MEDS ORDERED: VANCOMYCIN PER PHARMACY MC PRN (08:55)
[2022-04-29 09:00] VITALS: BP 67/50
[2022-04-29] MEDS ORDERED: HYDROCORTISONE NA SUCC 100 MG/2 ML VIAL IV ONE ×2 (09:00→10:15)
[2022-04-29] MEDS ORDERED: VANCOMYCIN 750 MG in DEXTROSE 5% 250 ML IV SCH (09:15)
[2022-04-29] MEDS ORDERED: DOPamine 400 MG/D5W PREMIX 250 ML IV PRN (09:35)
[2022-04-29] MEDS ORDERED: NOREPINEPHRINE 8 MG in DEXTROSE 5% 250 ML IV PRN (09:35)
--- NOTE | 2022-04-29 09:40 | NUR ---
SBP CONSTANTLY AT 50-70, NOTIFIED DR WEINBERG, NO NEW PRESSORS ORDERED. ORDERED ABD AND SOLUCORTEF 100MG IVP Q6H
[2022-04-29 10:00] VITALS: BP 58/40
--- NOTE | 2022-04-29 10:15 | NUR ---
ANUSHKA RODNEY AT BEDSIDE, UPDATE GIVEN
--- NOTE | 2022-04-29 10:16 | NUR ---
PATIENT HAS BEEN SCREENED AND CATEGORIZED HIGH NUTRITION RISK. PATIENT WILL BE SEEN WITHIN 1-2 DAYS OF ADMISSION. 04/29/22-04/30/22 JESSIE LYNN MS, RDN
[2022-04-29 10:19] VITALS: BP 75/54
--- NOTE | 2022-04-29 10:19 | NUR ---
DUE TO DESCENDING BLOOD PRESSURE AND CARDIAC STATUS ABG PROCEDURE NOT PERFORMED AT THIS TIME
--- NOTE | 2022-04-29 10:21 | NUR ---
PT BRADYCARDIC ON MONITOR AT HR 38, NOTIFIED DR BYRNE, HE WILL SPEAK TO FAMILY, CONFIRMED WITH DAUGHTER RONEL THAT PT IS DNR
[2022-04-29 10:30] VITALS: BP 75/54
--- NOTE | 2022-04-29 10:30 | NUR ---
NO PALPABLE PULSE AND NO AUSCULTATED HEART BEAT, CALLED ER
--- NOTE | 2022-04-29 10:35 | NUR ---
DR FELICIANO AT BEDSIDE, NOTED HEARTBEAT ON DOPPLER. DR FELICIANO SPOKE TO FAMILY AT BEDSIDE. FAMILY WANTS TO KEEP PT DNR AND CONTINUE CURRENT TX
[2022-04-29] MEDS ORDERED: MORPHINE SULFATE 2 MG/ML SYR ONE (10:39)
[2022-04-29] MEDS ORDERED: MORPHINE SULFATE 2 MG/ML SYR IVP ONE (10:45)
--- NOTE | 2022-04-29 10:46 | NUR ---
PATIENT CARDIAC PRONOUNCED AT THIS TIME BY DR. CATHLEEN RAMOS
--- NOTE | 2022-04-29 10:46 | NUR ---
TIME OF [address] FELICIANO
--- NOTE | 2022-04-29 11:15 | NUR ---
BODY RELEASED BY [facility] HELPER MOLLY [facility]. RELEASED BY [facility], REFERRAL# [id number]
[2022-04-29] MEDS ORDERED: HYDROCORTISONE NA SUCC 100 MG/2 ML VIAL IV SCH ×2 (12:00→13:00)
== END 2022-04-29 11:00 | DRG 871 ==
LOC: MED 18:43 → MIC 04-29 08:39
PROVIDERS: ADMIT Student in an Organized Health Care Education/Training Program; ATTEND Student in an Organized Health Care Education/Training Program
PROC: 06HY33Z Insertion of Infusion Device into Lower Vein, Percutaneous Approach (ICD-10-PCS; principal; 2022-04-29)
PROC: 5A1935Z Respiratory Ventilation, Less than 24 Consecutive Hours (ICD-10-PCS; 2022-04-29)
DX: A41.9 Sepsis, unspecified organism (principal); R65.21 Severe sepsis with septic shock; J18.9 Pneumonia, unspecified organism; J96.21 Acute and chronic respiratory failure with hypoxia; E87.1 Hypo-osmolality and hyponatremia; K63.89 Other specified diseases of intestine; Z20.822 Contact with and (suspected) exposure to COVID-19; Z88.5 Allergy status to narcotic agent; Z88.8 Allergy status to other drugs, medicaments and biological substances; Z79.899 Other long term (current) drug therapy; Z93.0 Tracheostomy status
CPT/HCPCS: 36415; 36556; 36600; 70450; 71045; 80053; 82550; 82553; 82803; 83605; 83874; 83880; 84484; 85025; 85610; 85730; 87040; 93005; 94003; 96365; 96367; 96368; 99291; J0456; J0696; J1265; J1720; J2270; J2543; J3370; J3490; J7060; Q0092